=== PATIENT | female | born 1955 | race Caucasian/White ===

== ENCOUNTER → 2016-09-13 | Outpatient (CLI) | payer BC ==
[~2016-09-13] MED LIST: CYAN100020 PO
--- NOTE | 2016-09-13 16:41 | DIAGNOSTIC IMAGING REPORT ---
Neck ULTRASOUND HISTORY: R22.1 Palpable mass of neck. Pt with prominent visible and palpable COMPARISON: None. FINDINGS: Real-time sonographic imaging of the right neck was performed. Within the right submandibular/sublingual location there is a dilated tubular structure anterior to the submandibular gland. This does not appear to be vascular and measures 3 cm in length and up to 7 mm in thickness. This corresponds the patient's palpable abnormality. No loculated fluid collections or masses identified IMPRESSION: A dilated tubular structure within the right submandibular/sublingual location which corresponds to the patient's palpable abnormality. This could represent a dilated submandibular duct or possibly a ranula. Contrast-enhanced neck CT is recommended for confirmation. Electronically signed by: Juan Carlos Pendleton M.D. 09/13/2016 4:40 PM Dictated Date/Time: 09/13/2016 4:38 PM
== END | disposition home or self-care (01) ==
LOC: C.ULTR 15:28
PROVIDERS: ATTEND Family Medicine
DX: R22.1 Localized swelling, mass and lump, neck (principal)

== ENCOUNTER → 2016-09-19 | Outpatient (CLI) | payer BC ==
[~2016-09-19] MED LIST changes: +OPTIRAY 320 IV PRN
--- NOTE | 2016-09-19 11:47 | DIAGNOSTIC IMAGING REPORT ---
CT SOFT TISSUE NECK WITH CT DOSE: 373.43 mGy.cm CLINICAL HISTORY: Right neck mass TECHNIQUE: Helical images were acquired during intravenous administration of 94 cc of Optiray 320. COMPARISON STUDY: Ultrasound study dated 09/13/2016 FINDINGS: The visualized portions of the lung apices are unremarkable. No thyroid masses are visualized. No salivary gland masses are visualized. There are no pathologically enlarged cervical lymph nodes. No necrotic nodes are evident. There are no fluid collections suspicious for abscess. There is no evidence of airway compromise. No mucosal space masses are visualized. The tubular structure described on the recent ultrasound study, to represent a vein. The superior aspect of this vein in the right recommended or region, may be focally thrombosed. IMPRESSION: 1. No pathologic masses. 2. No evidence of pathologic adenopathy 3. The palpable abnormality, which was described on the most recent ultrasound has a dilated tubular structure, appears to represent a superficial vein which may be focally thrombosed in the right retromandibular region. Electronically signed by: Timothy Mendieta M.D. 09/19/2016 11:46 AM Dictated Date/Time: 09/19/2016 11:26 AM
== END ==
LOC: C.CTS 11:08
PROVIDERS: ATTEND Family Medicine
DX: R22.1 Localized swelling, mass and lump, neck (principal)

== ENCOUNTER → 2016-11-09 | Day surgery (SDC) | payer BC ==
--- NOTE | 2016-11-07 14:26 | PAT Medication Instructions ---
Service Date Nov 07, 2016. Current Home Medication List Cyanocobalamin (Vitamin B12), 1 TAB PO QAM Medication Instructions For Your Scheduled Surgery - Take the following medications the morning of surgery with a sip of water: Cyanocobalamin (Vitamin B12), 1 TAB PO QAM If you have any questions please call us at [phone] or [phone] or [phone]
[2016-11-07 14:43] LABS: BASO % 0.6 %; BASO ABS # 0.03 K/uL (0-0.2); COMPLETE YES; IG% 0.2 %; LYMPH ABS # 1.19 K/uL (1.2-3.4); MEAN CELL VOLUME 89.5 fL (80-100); MEAN CORPUSCULAR HEMOGLOBIN 30.6 pg (25-34); MEAN CORPUSCULAR HGB CONC 34.3 g/dl (32-36); MEAN PLATELET VOLUME 11.4 fL (7.4-10.4); MONO % 8.1 %; NEUT % 65.1 %; PLATELET COUNT 177 K/uL (130-400); RED BLOOD COUNT 4.47 M/uL (4.2-5.4); WHITE BLOOD COUNT 4.95 K/uL (4.8-10.8)
[~2016-11-09] VITALS: Ht 154.9 cm; Wt 73.5 kg
[~2016-11-09] MED LIST changes: +LACTATED RINGER'S 1000ML 1,000 ML IV SCH; +LIDO 2%/EPINEPHRINE 1:100000 20 ML VIAL INFIL ONE; -OPTIRAY 320 IV PRN
[2016-11-09 05:55] VITALS: BP 128/75; PULSE 68; TEMP 36.7; O2SAT 98; Ht 154.9 cm; Wt 73.5 kg
--- NOTE | 2016-11-09 07:23 | History and Physical ---
History & Physical Date Nov 09, 2016. Chief Complaint right neck mass History of Present Illness The patient is a 61 year old female with complaints of persistent right submandibular mass, mother had lymphoma Additional History Hepatic Disease: No Endocrine Disorder: No Kidney Disease: No Hypertension: No Heart Disease: No Bleeding Tendencies: No Infectious Diseases: No Allergies Coded Allergies: NO KNOWN DRUG ALLERGIES (Verified Allergy, Unknown, ., 11/09/16) Home Medications Scheduled Cyanocobalamin (Vitamin B12), 1 TAB PO QAM Physical Examination Skin: warm/dry, no rash Eyes: normal inspection, EOMI, sclerae normal ENT: normal ENT inspection, pharynx normal Head: normocephalic, atraumatic Neck: supple, no adenopathy, trachea midline Respiratory/Chest: lungs clear, normal breath sounds, no respiratory distress Cardiovascular: regular rate, rhythm, no edema, no murmur Abdomen / GI: normal bowel sounds, non tender Back: normal inspection Extremities: normal inspection, normal range of motion Neurologic/Psych: no motor/sensory deficits, alert, normal reflexes, oriented x 3 Diagnosis right neck mass Plan of Treatment needle biopsy
[2016-11-09 08:08] VITALS: BP 139/75; PULSE 64; TEMP 36.7; O2SAT 96
--- NOTE | 2016-11-09 08:09 | Discharge Instructions ---
Discharge Instructions Date of Service Nov 09, 2016. Admission Reason for Admission: Right Neck Mass Discharge Discharge Diagnosis / Problem: same Discharge Goals Goal(s): Diagnostic testing Activity Recommendations Activity Limitations: resume your previous activity none . Instructions / Follow-Up Instructions / Follow-Up ice pack x 24 hrs. Current Hospital Diet Patient's current hospital diet: Discharge Diet Recommended Diet: Regular Diet Procedures Procedures Performed: Right Neck Mass Needle Biospy Pending Studies Studies pending at discharge: yes List of pending studies: pathology Medical Emergencies . Who to Call and When: Medical Emergencies: If at any time you feel your situation is an emergency, please call 911 immediately. . Non-Emergent Contact Non-Emergency issues call your: Primary Care Provider . "Provider Documentation" section prepared by Syeda Gomez. . VTE Core Measure Inpt VTE Proph given/why not?: Treatment not indicated [place] Drug Monitoring Program Search Results: no issues identified
--- NOTE | 2016-11-09 08:12 | [facility] Operative Report ---
Operative Report Operative Date Nov 09, 2016. Pre-Operative Diagnosis Right Neck Mass Post-Operative Diagnosis Right Neck Mass Procedure(s) Performed Right Neck Mass Needle Biospy Surgeon Dr. Syeda Gomez Repair Order Clerk Surgeon(s) None Estimated Blood Loss 2 ml Findings path pending Specimens Specimen sent with pathology Cell aspiration Drains none Anesthesia local Complication(s) None Disposition Recovery Room / PACU Description of Procedure needle biopsy x 3 right neck I attest to the content of the Intraoperative Record and any orders documented therein. Any exceptions are noted below.
[2016-11-09 08:22] VITALS: BP 135/69; PULSE 61; TEMP 36.7; O2SAT 97
--- NOTE | 2016-11-22 10:26 | [facility] Operative Report ---
Operative Report Operative Date Nov 22, 2016. Pre-Operative Diagnosis Right Neck Mass Post-Operative Diagnosis Right Neck Mass Procedure(s) Performed Right Neck Mass Needle Biospy Surgeon Dr. Syeda Gomez Chute Builder Surgeon(s) None Estimated Blood Loss 2 ml Findings Right submandibular mass Specimens Specimen sent with pathology Cell aspiration Drains none Anesthesia local Complication(s) None None Disposition Recovery Room / PACU Indications 61-year-old lady with persistent right submandibular mass confirmed on the ultrasound Description of Procedure The patient was brought to the operating room placed supine position with the head elevated. Local anesthesia was obtained by injecting with 1% Xylocaine with 1-100,000 strength epinephrine. The needle biopsy of the right submandibular mass was performed at first using the 18-gauge needle and then using a 25-gauge needle 3 separate needle biopsies were taken. These were process and sent to pathology. The patient tolerated procedure well was taken recovery area. I attest to the content of the Intraoperative Record and any orders documented therein. Any exceptions are noted below.
== END | disposition home or self-care (01) ==
LOC: C.ACU 05:37
PROVIDERS: ATTEND Otolaryngology
DX: R22.1 Localized swelling, mass and lump, neck (principal); Z80.7 Family history of other malignant neoplasms of lymphoid, hematopoietic and related tissues; K21.9 Gastro-esophageal reflux disease without esophagitis; Z90.89 Acquired absence of other organs; Z90.710 Acquired absence of both cervix and uterus; Z90.49 Acquired absence of other specified parts of digestive tract; N20.0 Calculus of kidney; E66.9 Obesity, unspecified; M85.80 Other specified disorders of bone density and structure, unspecified site

== ENCOUNTER → 2017-01-02 | Outpatient (CLI) | payer BC ==
[~2017-01-02] MED LIST changes: -LACTATED RINGER'S 1000ML 1,000 ML IV SCH; -LIDO 2%/EPINEPHRINE 1:100000 20 ML VIAL INFIL ONE
--- NOTE | 2017-01-02 17:02 | DIAGNOSTIC IMAGING REPORT ---
Right neck ultrasonography CLINICAL HISTORY: Palpable right neck mass. COMPARISON STUDY: CT scan dated 09/19/2016, ultrasound dated 09/13/2016 FINDINGS: Again evident is a dilated tubular structure corresponding to the palpable abnormality. This is felt to represent a prominent superficial vein. Doppler interrogation demonstrates flow within this structure. IMPRESSION: The palpable abnormality remains similar to the preceding study, and is felt to represent a prominent superficial vein. Electronically signed by: Timothy Mendieta M.D. 01/02/2017 5:01 PM Dictated Date/Time: 01/02/2017 4:58 PM
== END | disposition home or self-care (01) ==
LOC: C.ULTR 15:12
DX: R22.1 Localized swelling, mass and lump, neck (principal)